=== PATIENT | female | born 1970 | race Two or more races ===

== ENCOUNTER 2022-11-28 07:41 | Emergency (ER) | payer OTHER ==
[~2022-11-28] VITALS: Ht 152.4 cm; Wt 90.7 kg
[2022-11-28] MEDS ORDERED: COZAAR100 MG PO (07:51)
[2022-11-28] MEDS ORDERED: DEPAKOTE ER500 MG PO (07:52)
[2022-11-28] MEDS ORDERED: METFORMIN HCL500 MG (07:52)
[2022-11-28] MEDS ORDERED: NEURONTIN800 MG PO (07:52)
== END 2022-11-28 14:30 | disposition home or self-care (01) ==
LOC: ER 07:41
DX: R10.84 Generalized abdominal pain (principal); E11.9 Type 2 diabetes mellitus without complications; I10 Essential (primary) hypertension; N20.9 Urinary calculus, unspecified